=== PATIENT | female | born 1940 | race Caucasian/White ===

== ENCOUNTER 2016-04-27 21:11 | Emergency (ER) | payer MEDICARE ==
[~2016-04-27] VITALS: Ht 175.3 cm; Wt 68.0 kg
[2016-04-27] MEDS ORDERED: HYDROCODONE/APAP 10/325MG 1 EA TABLET ONE (23:09)
[2016-04-27] MEDS ORDERED: HYDROCODONE/APAP 10/325MG 1 EA TABLET PO ONE (23:30)
[2016-04-28 02:51] VITALS: BP 135/85
== END 2016-04-28 02:29 | disposition home or self-care (01) ==
LOC: ER 21:13
DX: S09.90XA Unspecified injury of head, initial encounter (principal); S02.402A Zygomatic fracture, unspecified side, initial encounter for closed fracture; S42.002A Fracture of unspecified part of left clavicle, initial encounter for closed fracture; S01.112A Laceration without foreign body of left eyelid and periocular area, initial encounter; S81.812A Laceration without foreign body, left lower leg, initial encounter; S05.12XA Contusion of eyeball and orbital tissues, left eye, initial encounter; X58.XXXA Exposure to other specified factors, initial encounter; Y93.9 Activity, unspecified; Y92.9 Unspecified place or not applicable; Y99.9 Unspecified external cause status
CPT/HCPCS: 70450-TC; 72125-TC; 73030-TC; 73090-TC; 73200-TC; 73564-TC; 73590-TC; A4606; A6402; A6403; L0172; Z7610